=== PATIENT | male | born 1950 | race Caucasian/White ===

== ENCOUNTER 2020-08-04 22:34 | Inpatient (IN) | payer OTHER ==
[~2020-08-04] VITALS: Ht 190.5 cm; Wt 78.5 kg
[2020-08-04 22:44] VITALS: BP 150/99
[2020-08-04] MEDS ORDERED: ASPI-1420 PO (23:35)
[2020-08-04] MEDS ORDERED: GLIP5TAB13 PO (23:37)
[2020-08-04] MEDS ORDERED: LITH300C2 PO (23:37)
[2020-08-04] MEDS ORDERED: METF-440 PO (23:38)
[2020-08-04] MEDS ORDERED: AMLO-213 PO (23:39)
[2020-08-04] MEDS ORDERED: ATOR10TA PO (23:42)
[2020-08-04] MEDS ORDERED: PIOG30TA10 PO (23:42)
[2020-08-05] MEDS ORDERED: ACETAMINOPHEN 325 MG TABLET PO PRN
[2020-08-05] MEDS ORDERED: MAGNESIUM HYDROXIDE 30 ML UDC PO PRN
[2020-08-05] MEDS ORDERED: LORAZEPAM 0.5 MG TABLET PO PRN
[2020-08-05] MEDS ORDERED: MAG HYDROX/AL HYDROX/SIMETH 30 ML UDC PO PRN
[2020-08-05] MEDS ORDERED: DEXTROSE 50%-WATER 50 ML DISP.SYRIN IV PRN (01:00)
[2020-08-05] MEDS ORDERED: BLOOD SUGAR DIAGNOSTIC 1 EACH STRIP IN ONE (01:00)
[2020-08-05] MEDS ORDERED: INSU100V7 SUBCUT (06:36)
[2020-08-05] MEDS: BLOOD SUGAR DIAGNOSTIC 1 EACH STRIP IN SCH ×4 (07:50→22:09)
[2020-08-05 07:56] LABS: BASOPHILS % (AUTO) 0.4 % (0.0-2.0); EOSINOPHILS % (AUTO) 2.3 % (0.0-6.0); HEMATOCRIT 48 % (39-51); HEMOGLOBIN 15.6 g/dL (13.5-17.5); LYMPHOCYTES # (AUTO) 1.7 /CMM (0.8-4.8); LYMPHOCYTES % (AUTO) 15.2 % (20.0-44.0); MEAN CORPUSCULAR HGB CONC 33 g/dl (31.0-36.0); MEAN CORPUSCULAR VOLUME 91 fL (80-96); MONOCYTES # (AUTO) 0.8 /CMM (0.1-1.30); NEUTROPHILS # (AUTO) 8.5 /CMM (1.8-8.9); NEUTROPHILS % (AUTO) 75.1 % (43.0-81.0); PLATELET COUNT (AUTO) 276 /CMM (150-450); RED BLOOD CELL COUNT(AUTO) 5.28 MIL/uL (4.5-6.0); WHITE BLOOD COUNT (AUTO) 11.3 K/uL (4.3-11.0)
[2020-08-05] MEDS: INSULIN REGULAR, HUMAN 100 UNIT/ML 3 ML VIAL SQ PRN ×3 (07:56→22:40)
[2020-08-05 08:00] VITALS: BP 133/79
[2020-08-05] MEDS ORDERED: METFORMIN 500 MG TABLET PO SCH (08:00)
[2020-08-05] MEDS: glipiZIDE 5 MG TABLET PO SCH ×2 (08:10→17:41)
[2020-08-05] MEDS: LORAZEPAM 1 MG TABLET PO PRN (08:12)
[2020-08-05 08:26] LABS: CALCIUM, SERUM 9.5 mg/dL (8.5-10.1); CREATININE 3.1 mg/dL (0.6-1.3); POTASSIUM 4.3 mmol/L (3.5-5.1)
[2020-08-05] MEDS: PIOGLITAZONE HCL 15 MG TABLET PO SCH (09:34)
[2020-08-05] MEDS: ASPIRIN EC 81 MG TABLET.DR PO SCH (09:34)
[2020-08-05] MEDS: AMLODIPINE BESYLATE 10 MG TABLET PO SCH (09:34)
[2020-08-05] MEDS ORDERED: IV NS 0.9% 1,000 ML IV ONE (13:00)
[2020-08-05] MEDS: QUETIAPINE FUMARATE 25 MG TABLET PO SCH ×2 (13:49→17:41)
[2020-08-05 16:00] VITALS: BP 121/71
[2020-08-05 19:45] VITALS: BP 128/76
[2020-08-05] MEDS: LITHIUM CARBONATE (300 MG CAP) 300 MG CAPSULE PO SCH (20:25)
[2020-08-05] MEDS: ATORVASTATIN 10 MG TABLET PO SCH (22:09)
[2020-08-05] MEDS: MIRTAZAPINE 15 MG TABLET PO SCH (22:09)
[2020-08-06] MEDS: TEMAZEPAM 7.5 MG CAPSULE PO PRN (00:27)
[2020-08-06 06:48] LABS: BASOPHILS # (AUTO) 0.1 /CMM (0.0-0.2); BASOPHILS % (AUTO) 0.4 % (0.0-2.0); EOSINOPHILS % (AUTO) 2.8 % (0.0-6.0); HEMATOCRIT 48 % (39-51); HEMOGLOBIN 15.9 g/dL (13.5-17.5); LYMPHOCYTES # (AUTO) 2.1 /CMM (0.8-4.8); LYMPHOCYTES % (AUTO) 16.1 % (20.0-44.0); MEAN CORPUSCULAR HGB CONC 33 g/dl (31.0-36.0); MEAN CORPUSCULAR VOLUME 91 fL (80-96); MONOCYTES # (AUTO) 0.9 /CMM (0.1-1.30); MONOCYTES % (AUTO) 6.8 % (2.0-12.0); NEUTROPHILS # (AUTO) 9.8 /CMM (1.8-8.9); NEUTROPHILS % (AUTO) 73.9 % (43.0-81.0); PLATELET COUNT (AUTO) 289 /CMM (150-450); RED BLOOD CELL COUNT(AUTO) 5.33 MIL/uL (4.5-6.0); WHITE BLOOD COUNT (AUTO) 13.3 K/uL (4.3-11.0)
[2020-08-06 07:10] LABS: CALCIUM, SERUM 9.7 mg/dL (8.5-10.1); CREATININE 3.6 mg/dL (0.6-1.3); MAGNESIUM 2.6 mg/dL (1.8-2.4); PHOSPHORUS 4.9 mg/dL (2.5-4.9); POTASSIUM 4.9 mmol/L (3.5-5.1)
[2020-08-06] MEDS: BLOOD SUGAR DIAGNOSTIC 1 EACH STRIP IN SCH ×4 (07:26→21:46)
[2020-08-06] MEDS: INSULIN REGULAR, HUMAN 100 UNIT/ML 3 ML VIAL SQ PRN ×4 (07:27→21:38)
[2020-08-06 08:00] VITALS: BP 159/99
[2020-08-06] MEDS: PIOGLITAZONE HCL 15 MG TABLET PO SCH (08:56)
[2020-08-06] MEDS: LORAZEPAM 1 MG TABLET PO PRN (08:56)
[2020-08-06] MEDS: LITHIUM CARBONATE (300 MG CAP) 300 MG CAPSULE PO SCH ×2 (08:57→21:14)
[2020-08-06] MEDS: glipiZIDE 5 MG TABLET PO SCH ×2 (08:57→17:18)
[2020-08-06] MEDS: QUETIAPINE FUMARATE 25 MG TABLET PO SCH ×2 (08:58→17:18)
[2020-08-06] MEDS: AMLODIPINE BESYLATE 10 MG TABLET PO SCH (08:59)
[2020-08-06] MEDS: ASPIRIN EC 81 MG TABLET.DR PO SCH (08:59)
[2020-08-06 16:00] VITALS: BP 147/75
[2020-08-06 20:00] VITALS: BP 145/82
[2020-08-06] MEDS: MIRTAZAPINE 15 MG TABLET PO SCH (21:14)
[2020-08-06] MEDS: ATORVASTATIN 10 MG TABLET PO SCH (21:14)
[2020-08-07] MEDS: TEMAZEPAM 7.5 MG CAPSULE PO PRN ×2 (02:54→23:35)
[2020-08-07 07:03] LABS: BASOPHILS # (AUTO) 0.1 /CMM (0.0-0.2); BASOPHILS % (AUTO) 0.6 % (0.0-2.0); EOSINOPHILS % (AUTO) 3.9 % (0.0-6.0); HEMATOCRIT 45 % (39-51); HEMOGLOBIN 14.7 g/dL (13.5-17.5); LYMPHOCYTES # (AUTO) 1.8 /CMM (0.8-4.8); LYMPHOCYTES % (AUTO) 13.3 % (20.0-44.0); MEAN CORPUSCULAR HGB CONC 33 g/dl (31.0-36.0); MEAN CORPUSCULAR VOLUME 92 fL (80-96); MONOCYTES # (AUTO) 0.9 /CMM (0.1-1.30); MONOCYTES % (AUTO) 6.9 % (2.0-12.0); NEUTROPHILS # (AUTO) 10.4 /CMM (1.8-8.9); NEUTROPHILS % (AUTO) 75.3 % (43.0-81.0); PLATELET COUNT (AUTO) 250 /CMM (150-450); RED BLOOD CELL COUNT(AUTO) 4.88 MIL/uL (4.5-6.0); WHITE BLOOD COUNT (AUTO) 13.8 K/uL (4.3-11.0)
[2020-08-07 07:28] LABS: CREATININE 3.2 mg/dL (0.6-1.3); MAGNESIUM 2.8 mg/dL (1.8-2.4); PHOSPHORUS 4.1 mg/dL (2.5-4.9); POTASSIUM 4.2 mmol/L (3.5-5.1)
[2020-08-07] MEDS: BLOOD SUGAR DIAGNOSTIC 1 EACH STRIP IN SCH ×4 (07:30→21:21)
[2020-08-07] MEDS: glipiZIDE 5 MG TABLET PO SCH ×2 (07:30→17:44)
[2020-08-07 08:00] VITALS: BP_SYST 124; BP_SYST 168; BP_DIAS 101; BP_DIAS 78
[2020-08-07] MEDS: INSULIN REGULAR, HUMAN 100 UNIT/ML 3 ML VIAL SQ PRN ×3 (09:14→21:33)
[2020-08-07] MEDS: LITHIUM CARBONATE (300 MG CAP) 300 MG CAPSULE PO SCH ×2 (09:40→21:19)
[2020-08-07] MEDS: ASPIRIN EC 81 MG TABLET.DR PO SCH (09:40)
[2020-08-07] MEDS: PIOGLITAZONE HCL 15 MG TABLET PO SCH (09:40)
[2020-08-07] MEDS: QUETIAPINE FUMARATE 25 MG TABLET PO SCH ×2 (09:40→17:44)
[2020-08-07] MEDS: AMLODIPINE BESYLATE 10 MG TABLET PO SCH (09:41)
[2020-08-07] MEDS: LORAZEPAM 1 MG TABLET PO PRN (14:06)
[2020-08-07 16:00] VITALS: BP 138/79
[2020-08-07 20:00] VITALS: BP 118/73
[2020-08-07] MEDS: ATORVASTATIN 10 MG TABLET PO SCH (21:19)
[2020-08-07] MEDS: MIRTAZAPINE 15 MG TABLET PO SCH (21:20)
[2020-08-08] MEDS: LORAZEPAM 1 MG TABLET PO PRN ×2 (04:51→14:16)
[2020-08-08 06:36] LABS: BASOPHILS # (AUTO) 0.1 /CMM (0.0-0.2); BASOPHILS % (AUTO) 0.4 % (0.0-2.0); EOSINOPHILS % (AUTO) 3.8 % (0.0-6.0); HEMATOCRIT 46 % (39-51); HEMOGLOBIN 15.3 g/dL (13.5-17.5); LYMPHOCYTES # (AUTO) 1.5 /CMM (0.8-4.8); LYMPHOCYTES % (AUTO) 9.7 % (20.0-44.0); MEAN CORPUSCULAR HGB CONC 33 g/dl (31.0-36.0); MEAN CORPUSCULAR VOLUME 91 fL (80-96); MONOCYTES # (AUTO) 1.1 /CMM (0.1-1.30); MONOCYTES % (AUTO) 6.9 % (2.0-12.0); NEUTROPHILS # (AUTO) 12.2 /CMM (1.8-8.9); NEUTROPHILS % (AUTO) 79.2 % (43.0-81.0); PLATELET COUNT (AUTO) 280 /CMM (150-450); RED BLOOD CELL COUNT(AUTO) 5.04 MIL/uL (4.5-6.0); WHITE BLOOD COUNT (AUTO) 15.5 K/uL (4.3-11.0)
[2020-08-08 06:59] LABS: CALCIUM, SERUM 9.7 mg/dL (8.5-10.1); CREATININE 2.9 mg/dL (0.6-1.3); MAGNESIUM 2.8 mg/dL (1.8-2.4); PHOSPHORUS 4.6 mg/dL (2.5-4.9); POTASSIUM 4.3 mmol/L (3.5-5.1)
[2020-08-08] MEDS: INSULIN REGULAR, HUMAN 100 UNIT/ML 3 ML VIAL SQ PRN ×4 (07:13→22:10)
[2020-08-08] MEDS: BLOOD SUGAR DIAGNOSTIC 1 EACH STRIP IN SCH ×4 (07:15→22:03)
[2020-08-08] MEDS: LITHIUM CARBONATE (300 MG CAP) 300 MG CAPSULE PO SCH (09:00)
[2020-08-08] MEDS: PIOGLITAZONE HCL 15 MG TABLET PO SCH (09:13)
[2020-08-08] MEDS: QUETIAPINE FUMARATE 25 MG TABLET PO SCH ×2 (09:14→16:48)
[2020-08-08] MEDS: AMLODIPINE BESYLATE 10 MG TABLET PO SCH (09:14)
[2020-08-08] MEDS: glipiZIDE 5 MG TABLET PO SCH ×2 (09:14→16:48)
[2020-08-08] MEDS: ASPIRIN EC 81 MG TABLET.DR PO SCH (09:14)
[2020-08-08 11:26] VITALS: BP 139/84
[2020-08-08 16:46] VITALS: BP 130/84
[2020-08-08] MEDS: ATORVASTATIN 10 MG TABLET PO SCH (21:32)
[2020-08-08] MEDS: MIRTAZAPINE 15 MG TABLET PO SCH (21:32)
[2020-08-08] MEDS: TEMAZEPAM 7.5 MG CAPSULE PO PRN (22:54)
[2020-08-09] MEDS: LORAZEPAM 1 MG TABLET PO PRN ×2 (00:55→20:35)
[2020-08-09 03:10] VITALS: BP 122/73
[2020-08-09] MEDS: BLOOD SUGAR DIAGNOSTIC 1 EACH STRIP IN SCH ×4 (07:30→21:29)
[2020-08-09] MEDS: glipiZIDE 5 MG TABLET PO SCH ×2 (07:30→16:30)
[2020-08-09 08:00] VITALS: BP 158/89
[2020-08-09] MEDS: INSULIN REGULAR, HUMAN 100 UNIT/ML 3 ML VIAL SQ PRN ×3 (08:06→22:08)
[2020-08-09] MEDS: PIOGLITAZONE HCL 15 MG TABLET PO SCH (09:09)
[2020-08-09] MEDS: QUETIAPINE FUMARATE 25 MG TABLET PO SCH ×2 (09:09→17:36)
[2020-08-09] MEDS: ASPIRIN EC 81 MG TABLET.DR PO SCH (09:09)
[2020-08-09] MEDS: AMLODIPINE BESYLATE 10 MG TABLET PO SCH (09:09)
[2020-08-09 14:13] LABS: BILIRUBIN,URINE NEGATIVE (NEGATIVE); COLOR,URINE YELLOW (YELLOW); LEUKOCYTE ESTERASE ,URINE NEGATIVE (NEGATIVE); NITRITE, URINE NEGATIVE (NEGATIVE); PROTEIN,URINE 100 mg/dl (NEGATIVE); UGLUCOSE >=1000 mg/dL (NEGATIVE); UROBILINOGEN,URINE 0.2 EU/dL (0.2)
[2020-08-09 14:26] LABS: BACTERIA,URINE None seen /HPF (None Seen); RBC,URINE 0-2 /HPF (0-2); SQUAMOUS EPITHELIAL CELL,UR Rare /HPF (None Seen); WBC,URINE 0-2 /HPF (0-3)
[2020-08-09 16:00] VITALS: BP 132/90
[2020-08-09 20:16] VITALS: BP 139/74
[2020-08-09] MEDS: MIRTAZAPINE 15 MG TABLET PO SCH (21:11)
[2020-08-09] MEDS: ATORVASTATIN 10 MG TABLET PO SCH (21:11)
[2020-08-10 07:40] LABS: BASOPHILS # (AUTO) 0.1 /CMM (0.0-0.2); BASOPHILS % (AUTO) 0.6 % (0.0-2.0); HEMATOCRIT 47 % (39-51); HEMOGLOBIN 14.9 g/dL (13.5-17.5); LYMPHOCYTES # (AUTO) 1.9 /CMM (0.8-4.8); LYMPHOCYTES % (AUTO) 12.6 % (20.0-44.0); MEAN CORPUSCULAR HGB CONC 32 g/dl (31.0-36.0); MEAN CORPUSCULAR VOLUME 93 fL (80-96); MONOCYTES # (AUTO) 1.2 /CMM (0.1-1.30); MONOCYTES % (AUTO) 8.1 % (2.0-12.0); NEUTROPHILS # (AUTO) 11.6 /CMM (1.8-8.9); NEUTROPHILS % (AUTO) 75.7 % (43.0-81.0); PLATELET COUNT (AUTO) 264 /CMM (150-450); RED BLOOD CELL COUNT(AUTO) 5.01 MIL/uL (4.5-6.0); WHITE BLOOD COUNT (AUTO) 15.3 K/uL (4.3-11.0)
[2020-08-10 08:00] VITALS: BP 144/85
[2020-08-10] MEDS: BLOOD SUGAR DIAGNOSTIC 1 EACH STRIP IN SCH (08:42)
[2020-08-10 08:47] LABS: CREATININE 2.8 mg/dL (0.6-1.3); MAGNESIUM 3.1 mg/dL (1.8-2.4); PHOSPHORUS 5.1 mg/dL (2.5-4.9); POTASSIUM 5.1 mmol/L (3.5-5.1)
[2020-08-10] MEDS: INSULIN REGULAR, HUMAN 100 UNIT/ML 3 ML VIAL SQ PRN ×3 (08:48→18:15)
[2020-08-10] MEDS: PIOGLITAZONE HCL 15 MG TABLET PO SCH (08:58)
[2020-08-10] MEDS: ASPIRIN EC 81 MG TABLET.DR PO SCH (08:59)
[2020-08-10] MEDS: QUETIAPINE FUMARATE 25 MG TABLET PO SCH ×3 (08:59→18:19)
[2020-08-10] MEDS: glipiZIDE 5 MG TABLET PO SCH ×2 (08:59→18:19)
[2020-08-10] MEDS: AMLODIPINE BESYLATE 10 MG TABLET PO SCH (08:59)
[2020-08-10] MEDS: LORAZEPAM 1 MG TABLET PO PRN (09:48)
[2020-08-10] MEDS ORDERED: DEXTROSE 50%-WATER 50 ML DISP.SYRIN IV PRN (11:30)
[2020-08-10] MEDS: BLOOD SUGAR DIAGNOSTIC 1 EACH STRIP VI SCH ×3 (12:12→22:22)
[2020-08-10 16:57] VITALS: BP 133/88
[2020-08-10 20:03] VITALS: BP 117/56
[2020-08-10] MEDS: ATORVASTATIN 10 MG TABLET PO SCH (22:14)
[2020-08-10] MEDS: TAMSULOSIN 0.4 MG CAP.SR.24H PO SCH (22:14)
[2020-08-10] MEDS: MIRTAZAPINE 15 MG TABLET PO SCH (22:14)
[2020-08-10] MEDS: *INSULIN REGULAR(HUMULIN R)HUM 100 UNIT/ML VIAL SQ PRN (22:25)
[2020-08-11 07:39] LABS: BASOPHILS # (AUTO) 0.1 /CMM (0.0-0.2); BASOPHILS % (AUTO) 0.5 % (0.0-2.0); EOSINOPHILS % (AUTO) 3.3 % (0.0-6.0); HEMATOCRIT 45 % (39-51); HEMOGLOBIN 14.7 g/dL (13.5-17.5); LYMPHOCYTES # (AUTO) 1.5 /CMM (0.8-4.8); LYMPHOCYTES % (AUTO) 9.3 % (20.0-44.0); MEAN CORPUSCULAR HGB CONC 33 g/dl (31.0-36.0); MEAN CORPUSCULAR VOLUME 93 fL (80-96); MONOCYTES # (AUTO) 1.1 /CMM (0.1-1.30); MONOCYTES % (AUTO) 7.2 % (2.0-12.0); NEUTROPHILS # (AUTO) 12.8 /CMM (1.8-8.9); NEUTROPHILS % (AUTO) 79.7 % (43.0-81.0); PLATELET COUNT (AUTO) 251 /CMM (150-450); RED BLOOD CELL COUNT(AUTO) 4.87 MIL/uL (4.5-6.0); WHITE BLOOD COUNT (AUTO) 16.1 K/uL (4.3-11.0)
[2020-08-11] MEDS: BLOOD SUGAR DIAGNOSTIC 1 EACH STRIP VI SCH ×4 (07:58→22:01)
[2020-08-11 08:00] VITALS: BP 124/78
[2020-08-11] MEDS: glipiZIDE 5 MG TABLET PO SCH ×2 (08:00→17:40)
[2020-08-11] MEDS: ASPIRIN EC 81 MG TABLET.DR PO SCH (08:00)
[2020-08-11] MEDS: LORAZEPAM 1 MG TABLET PO PRN (08:00)
[2020-08-11] MEDS: INSULIN REGULAR, HUMAN 100 UNIT/ML 3 ML VIAL SQ PRN ×3 (08:00→17:42)
[2020-08-11] MEDS: QUETIAPINE FUMARATE 25 MG TABLET PO SCH ×2 (08:00→12:34)
[2020-08-11] MEDS: AMLODIPINE BESYLATE 10 MG TABLET PO SCH (08:01)
[2020-08-11] MEDS: PIOGLITAZONE HCL 15 MG TABLET PO SCH (08:01)
[2020-08-11 08:25] LABS: CREATININE 2.8 mg/dL (0.6-1.3); MAGNESIUM 2.8 mg/dL (1.8-2.4); PHOSPHORUS 4.6 mg/dL (2.5-4.9); POTASSIUM 4.4 mmol/L (3.5-5.1)
[2020-08-11 16:00] VITALS: BP 125/69
[2020-08-11 20:18] VITALS: BP_SYST 117; BP_SYST 140; BP_DIAS 50; BP_DIAS 56
[2020-08-11] MEDS: TAMSULOSIN 0.4 MG CAP.SR.24H PO SCH (21:34)
[2020-08-11] MEDS: ATORVASTATIN 10 MG TABLET PO SCH (21:34)
[2020-08-11] MEDS: MIRTAZAPINE 15 MG TABLET PO SCH (21:34)
[2020-08-11] MEDS: TEMAZEPAM 7.5 MG CAPSULE PO PRN (21:38)
[2020-08-11] MEDS ORDERED: TAMSULOSIN 0.4 MG CAP.SR.24H PO SCH ×2 (22:00)
[2020-08-11] MEDS: *INSULIN REGULAR(HUMULIN R)HUM 100 UNIT/ML VIAL SQ PRN (22:07)
[2020-08-12] MEDS: LORAZEPAM 1 MG TABLET PO PRN ×3 (02:20→23:41)
[2020-08-12 06:41] LABS: BASOPHILS # (AUTO) 0.1 /CMM (0.0-0.2); BASOPHILS % (AUTO) 0.5 % (0.0-2.0); EOSINOPHILS % (AUTO) 4.7 % (0.0-6.0); HEMATOCRIT 45 % (39-51); HEMOGLOBIN 14.5 g/dL (13.5-17.5); LYMPHOCYTES # (AUTO) 1.6 /CMM (0.8-4.8); LYMPHOCYTES % (AUTO) 12.4 % (20.0-44.0); MEAN CORPUSCULAR HGB CONC 33 g/dl (31.0-36.0); MEAN CORPUSCULAR VOLUME 91 fL (80-96); MONOCYTES # (AUTO) 0.9 /CMM (0.1-1.30); MONOCYTES % (AUTO) 7.1 % (2.0-12.0); NEUTROPHILS # (AUTO) 9.9 /CMM (1.8-8.9); NEUTROPHILS % (AUTO) 75.3 % (43.0-81.0); PLATELET COUNT (AUTO) 231 /CMM (150-450); WHITE BLOOD COUNT (AUTO) 13.1 K/uL (4.3-11.0)
[2020-08-12 07:10] LABS: CALCIUM, SERUM 9.7 mg/dL (8.5-10.1); CREATININE 2.9 mg/dL (0.6-1.3); MAGNESIUM 2.6 mg/dL (1.8-2.4); PHOSPHORUS 4.4 mg/dL (2.5-4.9); POTASSIUM 4.3 mmol/L (3.5-5.1)
[2020-08-12] MEDS: glipiZIDE 5 MG TABLET PO SCH ×2 (07:52→16:59)
[2020-08-12] MEDS: BLOOD SUGAR DIAGNOSTIC 1 EACH STRIP VI SCH ×4 (07:52→22:15)
[2020-08-12] MEDS: *INSULIN REGULAR(HUMULIN R)HUM 100 UNIT/ML VIAL SQ PRN ×2 (07:55→23:15)
[2020-08-12 08:00] VITALS: BP 120/56
[2020-08-12] MEDS: AMLODIPINE BESYLATE 10 MG TABLET PO SCH (08:52)
[2020-08-12] MEDS: PIOGLITAZONE HCL 15 MG TABLET PO SCH (08:52)
[2020-08-12] MEDS: QUETIAPINE FUMARATE 100 MG TABLET PO SCH ×2 (08:52→16:59)
[2020-08-12] MEDS: ASPIRIN EC 81 MG TABLET.DR PO SCH (08:52)
[2020-08-12] MEDS: BETHANECHOL CHLORIDE (10 MG) 10 MG TABLET PO SCH ×3 (08:54→17:14)
[2020-08-12] MEDS ORDERED: DEXTROSE 50%-WATER 50 ML DISP.SYRIN IV PRN (11:00)
[2020-08-12] MEDS ORDERED: *INSULIN REGULAR(HUMULIN R)HUM 100 UNIT/ML VIAL SQ PRN (11:00)
[2020-08-12 16:00] VITALS: BP 150/78
[2020-08-12] MEDS: INSULIN REGULAR, HUMAN 100 UNIT/ML 3 ML VIAL SQ PRN (18:11)
[2020-08-12 20:00] VITALS: BP 131/76
[2020-08-12] MEDS: TAMSULOSIN 0.4 MG CAP.SR.24H PO SCH (21:06)
[2020-08-12] MEDS: ATORVASTATIN 10 MG TABLET PO SCH (21:06)
[2020-08-12] MEDS: MIRTAZAPINE 15 MG TABLET PO SCH (21:06)
[2020-08-12] MEDS ORDERED: INSULIN GLARGINE, 100 UNIT/ML CARTRIDGE SQ ONE (21:28)
[2020-08-12] MEDS: INSULIN GLARGINE, 100 UNIT/ML CARTRIDGE SQ SCH (22:17)
[2020-08-13] MEDS: TEMAZEPAM 7.5 MG CAPSULE PO PRN (01:22)
[2020-08-13 06:49] LABS: BASOPHILS # (AUTO) 0.1 /CMM (0.0-0.2); BASOPHILS % (AUTO) 0.6 % (0.0-2.0); EOSINOPHILS % (AUTO) 2.8 % (0.0-6.0); HEMATOCRIT 44 % (39-51); HEMOGLOBIN 14.3 g/dL (13.5-17.5); LYMPHOCYTES # (AUTO) 1.4 /CMM (0.8-4.8); LYMPHOCYTES % (AUTO) 9.5 % (20.0-44.0); MEAN CORPUSCULAR HGB CONC 33 g/dl (31.0-36.0); MEAN CORPUSCULAR VOLUME 92 fL (80-96); MONOCYTES % (AUTO) 6.8 % (2.0-12.0); NEUTROPHILS # (AUTO) 11.6 /CMM (1.8-8.9); NEUTROPHILS % (AUTO) 80.3 % (43.0-81.0); PLATELET COUNT (AUTO) 207 /CMM (150-450); RED BLOOD CELL COUNT(AUTO) 4.74 MIL/uL (4.5-6.0); WHITE BLOOD COUNT (AUTO) 14.4 K/uL (4.3-11.0)
[2020-08-13 07:09] LABS: CALCIUM, SERUM 9.8 mg/dL (8.5-10.1); CREATININE 3.1 mg/dL (0.6-1.3); MAGNESIUM 2.9 mg/dL (1.8-2.4); PHOSPHORUS 4.8 mg/dL (2.5-4.9); POTASSIUM 4.6 mmol/L (3.5-5.1)
[2020-08-13] MEDS: BLOOD SUGAR DIAGNOSTIC 1 EACH STRIP VI SCH ×4 (07:43→21:25)
[2020-08-13] MEDS: INSULIN REGULAR, HUMAN 100 UNIT/ML 3 ML VIAL SQ PRN ×3 (07:49→17:33)
[2020-08-13 08:00] VITALS: BP 127/72
[2020-08-13] MEDS: AMLODIPINE BESYLATE 10 MG TABLET PO SCH (08:42)
[2020-08-13] MEDS: glipiZIDE 5 MG TABLET PO SCH ×2 (08:42→17:20)
[2020-08-13] MEDS: PIOGLITAZONE HCL 15 MG TABLET PO SCH (08:42)
[2020-08-13] MEDS: ASPIRIN EC 81 MG TABLET.DR PO SCH (08:42)
[2020-08-13] MEDS: QUETIAPINE FUMARATE 100 MG TABLET PO SCH ×2 (08:42→17:21)
[2020-08-13] MEDS: BETHANECHOL CHLORIDE (10 MG) 10 MG TABLET PO SCH ×3 (08:43→17:21)
[2020-08-13 16:00] VITALS: BP 86/57
[2020-08-13 20:04] VITALS: BP 138/67
[2020-08-13] MEDS: ATORVASTATIN 10 MG TABLET PO SCH (21:11)
[2020-08-13] MEDS: TAMSULOSIN 0.4 MG CAP.SR.24H PO SCH (21:12)
[2020-08-13] MEDS: MIRTAZAPINE 15 MG TABLET PO SCH (21:12)
[2020-08-13] MEDS: INSULIN GLARGINE, 100 UNIT/ML CARTRIDGE SQ SCH (21:27)
[2020-08-13] MEDS: *INSULIN REGULAR(HUMULIN R)HUM 100 UNIT/ML VIAL SQ PRN (22:45)
[2020-08-14] MEDS: BLOOD SUGAR DIAGNOSTIC 1 EACH STRIP VI SCH ×4 (07:22→21:56)
[2020-08-14] MEDS: INSULIN REGULAR, HUMAN 100 UNIT/ML 3 ML VIAL SQ PRN ×3 (07:24→17:04)
[2020-08-14 07:40] LABS: BASOPHILS # (AUTO) 0.1 /CMM (0.0-0.2); BASOPHILS % (AUTO) 0.5 % (0.0-2.0); EOSINOPHILS % (AUTO) 2.1 % (0.0-6.0); HEMATOCRIT 42 % (39-51); HEMOGLOBIN 13.9 g/dL (13.5-17.5); LYMPHOCYTES # (AUTO) 1.4 /CMM (0.8-4.8); LYMPHOCYTES % (AUTO) 8.7 % (20.0-44.0); MEAN CORPUSCULAR HGB CONC 33 g/dl (31.0-36.0); MEAN CORPUSCULAR VOLUME 91 fL (80-96); MONOCYTES # (AUTO) 1.2 /CMM (0.1-1.30); MONOCYTES % (AUTO) 7.4 % (2.0-12.0); NEUTROPHILS # (AUTO) 13.4 /CMM (1.8-8.9); NEUTROPHILS % (AUTO) 81.3 % (43.0-81.0); PLATELET COUNT (AUTO) 217 /CMM (150-450); WHITE BLOOD COUNT (AUTO) 16.5 K/uL (4.3-11.0)
[2020-08-14 07:58] LABS: CALCIUM, SERUM 9.9 mg/dL (8.5-10.1); CREATININE 2.8 mg/dL (0.6-1.3); MAGNESIUM 2.5 mg/dL (1.8-2.4); PHOSPHORUS 4.7 mg/dL (2.5-4.9); POTASSIUM 4.6 mmol/L (3.5-5.1)
[2020-08-14 08:00] VITALS: BP 137/84
[2020-08-14] MEDS: glipiZIDE 5 MG TABLET PO SCH ×2 (08:53→16:57)
[2020-08-14] MEDS: PIOGLITAZONE HCL 15 MG TABLET PO SCH (09:31)
[2020-08-14] MEDS: QUETIAPINE FUMARATE 100 MG TABLET PO SCH ×2 (09:31→16:57)
[2020-08-14] MEDS: ASPIRIN EC 81 MG TABLET.DR PO SCH (09:31)
[2020-08-14] MEDS: AMLODIPINE BESYLATE 10 MG TABLET PO SCH (09:32)
[2020-08-14] MEDS: BETHANECHOL CHLORIDE (10 MG) 10 MG TABLET PO SCH ×3 (09:58→16:57)
[2020-08-14] MEDS: FINASTERIDE (5 MG) 5 MG TABLET PO SCH (11:50)
[2020-08-14 16:00] VITALS: BP 96/60
[2020-08-14 20:00] VITALS: BP 108/79
[2020-08-14] MEDS: ATORVASTATIN 10 MG TABLET PO SCH (21:13)
[2020-08-14] MEDS: TAMSULOSIN 0.4 MG CAP.SR.24H PO SCH (21:13)
[2020-08-14] MEDS: MIRTAZAPINE 15 MG TABLET PO SCH (21:13)
[2020-08-14] MEDS: INSULIN GLARGINE, 100 UNIT/ML CARTRIDGE SQ SCH (22:04)
[2020-08-14] MEDS: *INSULIN REGULAR(HUMULIN R)HUM 100 UNIT/ML VIAL SQ PRN (22:45)
[2020-08-15 06:49] LABS: BASOPHILS % (AUTO) 0.3 % (0.0-2.0); EOSINOPHILS % (AUTO) 4.1 % (0.0-6.0); HEMATOCRIT 42 % (39-51); HEMOGLOBIN 13.6 g/dL (13.5-17.5); LYMPHOCYTES # (AUTO) 1.5 /CMM (0.8-4.8); LYMPHOCYTES % (AUTO) 10.5 % (20.0-44.0); MEAN CORPUSCULAR HGB CONC 33 g/dl (31.0-36.0); MEAN CORPUSCULAR VOLUME 91 fL (80-96); MONOCYTES # (AUTO) 1.1 /CMM (0.1-1.30); MONOCYTES % (AUTO) 7.4 % (2.0-12.0); NEUTROPHILS # (AUTO) 11.1 /CMM (1.8-8.9); NEUTROPHILS % (AUTO) 77.7 % (43.0-81.0); PLATELET COUNT (AUTO) 186 /CMM (150-450); WHITE BLOOD COUNT (AUTO) 14.2 K/uL (4.3-11.0)
[2020-08-15] MEDS: BLOOD SUGAR DIAGNOSTIC 1 EACH STRIP VI SCH ×4 (07:44→22:48)
[2020-08-15] MEDS: INSULIN REGULAR, HUMAN 100 UNIT/ML 3 ML VIAL SQ PRN ×4 (07:47→22:53)
[2020-08-15 07:52] LABS: CALCIUM, SERUM 9.5 mg/dL (8.5-10.1); CREATININE 2.7 mg/dL (0.6-1.3); MAGNESIUM 2.6 mg/dL (1.8-2.4); PHOSPHORUS 4.1 mg/dL (2.5-4.9); POTASSIUM 4.6 mmol/L (3.5-5.1)
[2020-08-15] MEDS: glipiZIDE 5 MG TABLET PO SCH ×2 (07:57→16:52)
[2020-08-15 08:00] VITALS: BP 120/71
[2020-08-15] MEDS: ASPIRIN EC 81 MG TABLET.DR PO SCH (08:41)
[2020-08-15] MEDS: PIOGLITAZONE HCL 15 MG TABLET PO SCH (08:41)
[2020-08-15] MEDS: AMLODIPINE BESYLATE 10 MG TABLET PO SCH (08:41)
[2020-08-15] MEDS: QUETIAPINE FUMARATE 100 MG TABLET PO SCH ×2 (08:41→16:53)
[2020-08-15] MEDS: FINASTERIDE (5 MG) 5 MG TABLET PO SCH (08:41)
[2020-08-15] MEDS: BETHANECHOL CHLORIDE (10 MG) 10 MG TABLET PO SCH ×3 (08:42→16:53)
[2020-08-15 16:00] VITALS: BP 104/57
[2020-08-15 20:51] VITALS: BP 113/70
[2020-08-15] MEDS: TAMSULOSIN 0.4 MG CAP.SR.24H PO SCH (22:04)
[2020-08-15] MEDS: MIRTAZAPINE 15 MG TABLET PO SCH (22:04)
[2020-08-15] MEDS: ATORVASTATIN 10 MG TABLET PO SCH (22:04)
[2020-08-15] MEDS: INSULIN GLARGINE, 100 UNIT/ML CARTRIDGE SQ SCH (22:51)
[2020-08-16 06:43] LABS: BASOPHILS # (AUTO) 0.1 /CMM (0.0-0.2); BASOPHILS % (AUTO) 0.5 % (0.0-2.0); EOSINOPHILS % (AUTO) 3.7 % (0.0-6.0); HEMATOCRIT 42 % (39-51); HEMOGLOBIN 13.4 g/dL (13.5-17.5); LYMPHOCYTES # (AUTO) 1.4 /CMM (0.8-4.8); LYMPHOCYTES % (AUTO) 9.4 % (20.0-44.0); MEAN CORPUSCULAR HGB CONC 32 g/dl (31.0-36.0); MEAN CORPUSCULAR VOLUME 91 fL (80-96); MONOCYTES % (AUTO) 7.1 % (2.0-12.0); NEUTROPHILS # (AUTO) 11.5 /CMM (1.8-8.9); NEUTROPHILS % (AUTO) 79.3 % (43.0-81.0); PLATELET COUNT (AUTO) 184 /CMM (150-450); RED BLOOD CELL COUNT(AUTO) 4.56 MIL/uL (4.5-6.0); WHITE BLOOD COUNT (AUTO) 14.5 K/uL (4.3-11.0)
[2020-08-16 07:16] LABS: CALCIUM, SERUM 9.6 mg/dL (8.5-10.1); CREATININE 2.7 mg/dL (0.6-1.3); PHOSPHORUS 3.9 mg/dL (2.5-4.9); POTASSIUM 4.1 mmol/L (3.5-5.1)
[2020-08-16 07:35] LABS: MAGNESIUM 2.6 mg/dL (1.8-2.4)
[2020-08-16 08:00] VITALS: BP 151/75
[2020-08-16] MEDS: INSULIN REGULAR, HUMAN 100 UNIT/ML 3 ML VIAL SQ PRN ×3 (08:01→17:20)
[2020-08-16] MEDS: BLOOD SUGAR DIAGNOSTIC 1 EACH STRIP VI SCH ×4 (08:03→21:46)
[2020-08-16] MEDS: PIOGLITAZONE HCL 15 MG TABLET PO SCH (08:38)
[2020-08-16] MEDS: glipiZIDE 5 MG TABLET PO SCH ×2 (08:38→16:24)
[2020-08-16] MEDS: BETHANECHOL CHLORIDE (10 MG) 10 MG TABLET PO SCH ×3 (08:38→16:24)
[2020-08-16] MEDS: FINASTERIDE (5 MG) 5 MG TABLET PO SCH (08:38)
[2020-08-16] MEDS: ASPIRIN EC 81 MG TABLET.DR PO SCH (08:38)
[2020-08-16] MEDS: QUETIAPINE FUMARATE 100 MG TABLET PO SCH ×2 (08:38→16:24)
[2020-08-16] MEDS: AMLODIPINE BESYLATE 10 MG TABLET PO SCH (08:38)
[2020-08-16 16:00] VITALS: BP 131/78
[2020-08-16 20:53] VITALS: BP 100/55
[2020-08-16] MEDS: ATORVASTATIN 10 MG TABLET PO SCH (21:42)
[2020-08-16] MEDS: TAMSULOSIN 0.4 MG CAP.SR.24H PO SCH (21:42)
[2020-08-16] MEDS: MIRTAZAPINE 15 MG TABLET PO SCH (21:43)
[2020-08-16] MEDS: INSULIN GLARGINE, 100 UNIT/ML CARTRIDGE SQ SCH (21:49)
[2020-08-16] MEDS: *INSULIN REGULAR(HUMULIN R)HUM 100 UNIT/ML VIAL SQ PRN (21:51)
[2020-08-17] MEDS: BLOOD SUGAR DIAGNOSTIC 1 EACH STRIP VI SCH ×3 (07:30→17:25)
[2020-08-17 08:00] VITALS: BP 112/63
[2020-08-17] MEDS: AMLODIPINE BESYLATE 10 MG TABLET PO SCH (09:00)
[2020-08-17] MEDS: INSULIN REGULAR, HUMAN 100 UNIT/ML 3 ML VIAL SQ PRN ×2 (09:51→13:10)
[2020-08-17] MEDS: ASPIRIN EC 81 MG TABLET.DR PO SCH (10:00)
[2020-08-17] MEDS: BETHANECHOL CHLORIDE (10 MG) 10 MG TABLET PO SCH ×3 (10:00→17:22)
[2020-08-17] MEDS: FINASTERIDE (5 MG) 5 MG TABLET PO SCH (10:01)
[2020-08-17] MEDS: glipiZIDE 5 MG TABLET PO SCH ×2 (10:01→17:22)
[2020-08-17] MEDS: QUETIAPINE FUMARATE 100 MG TABLET PO SCH ×2 (10:01→17:22)
[2020-08-17] MEDS: PIOGLITAZONE HCL 15 MG TABLET PO SCH (10:08)
[2020-08-17 16:00] VITALS: BP 111/64
== END 2020-08-17 18:55 | DRG 885 ==
LOC: GPS 22:34
PROVIDERS: ADMIT Psychiatry & Neurology Psychiatry
DX: F25.9 Schizoaffective disorder, unspecified (principal); N18.9 Chronic kidney disease, unspecified; N17.0 Acute kidney failure with tubular necrosis; E11.65 Type 2 diabetes mellitus with hyperglycemia; E87.0 Hyperosmolality and hypernatremia; N39.0 Urinary tract infection, site not specified; F29 Unspecified psychosis not due to a substance or known physiological condition; F41.9 Anxiety disorder, unspecified; E78.5 Hyperlipidemia, unspecified; Z73.6 Limitation of activities due to disability; E86.0 Dehydration; D72.829 Elevated white blood cell count, unspecified; E11.22 Type 2 diabetes mellitus with diabetic chronic kidney disease; G31.84 Mild cognitive impairment of uncertain or unknown etiology; N13.9 Obstructive and reflux uropathy, unspecified; Z79.84 Long term (current) use of oral hypoglycemic drugs; E86.1 Hypovolemia; N25.0 Renal osteodystrophy; I12.9 Hypertensive chronic kidney disease with stage 1 through stage 4 chronic kidney disease, or unspecified chronic kidney disease; Z79.899 Other long term (current) drug therapy; E83.39 Other disorders of phosphorus metabolism; E83.41 Hypermagnesemia; N40.1 Benign prostatic hyperplasia with lower urinary tract symptoms; R33.8 Other retention of urine; F19.10 Other psychoactive substance abuse, uncomplicated
CPT/HCPCS: 36415; 71045-TC; 76770-TC; 80048-TC; 80061-TC; 81001; 82962-TC; 83735-TC; 84100-TC; 85025-TC; 87040-TC; 87081-TC; 87086-TC; 97112-TC; 97116-TC; 97530-TC; J1815